=== PATIENT | male | born 1965 | race Caucasian/White ===

== ENCOUNTER 2019-06-17 11:19 | Emergency (ER) | payer OTHER ==
[~2019-06-17] VITALS: Ht 167.6 cm; Wt 96.6 kg
[2019-06-17 11:36] VITALS: Ht 167.6 cm; Wt 96.6 kg
[2019-06-17 12:58] VITALS: BP 161/83
== END 2019-06-17 13:53 | disposition home or self-care (01) ==
LOC: ED 11:19
DX: S01.01XA Laceration without foreign body of scalp, initial encounter (principal); W18.09XA Striking against other object with subsequent fall, initial encounter; Y93.89 Activity, other specified; Y92.89 Other specified places as the place of occurrence of the external cause; Y99.8 Other external cause status
CPT/HCPCS: 90715; J2001

== ENCOUNTER 2019-06-24 15:31 | Emergency (ER) | payer OTHER ==
[~2019-06-24] VITALS: Ht 167.6 cm; Wt 96.6 kg
[2019-06-24 15:55] VITALS: Ht 167.6 cm; Wt 96.6 kg
[2019-06-24 16:29] VITALS: BP 148/79
== END 2019-06-24 16:29 | disposition home or self-care (01) ==
LOC: ED 15:31
DX: S01.81XD Laceration without foreign body of other part of head, subsequent encounter (principal); X58.XXXD Exposure to other specified factors, subsequent encounter